=== PATIENT | female | born 1940 | race Caucasian/White ===

== ENCOUNTER 2018-01-06 12:49 | Emergency (ER) | payer MEDICARE, BC ==
[~2018-01-06] VITALS: Ht 552.4 cm; Wt 62.0 kg
[2018-01-06 13:10] VITALS: BP 126/64
[2018-01-06 13:34] LABS: BASOPHILS % (AUTO) 0.5 % (0-1); EOSINOPHILS % (AUTO) 0.2 % (0-6); HEMATOCRIT 38.8 % (35.0-45.0); HEMOGLOBIN 13.2 g/dl (12.0-16.0); LYMPHOCYTES # (AUTO) 2.4 X10'3 (1.1-4.8); LYMPHOCYTES % (AUTO) 23.6 % (21-51); MEAN CORPUSCULAR HEMOGLOBIN 29.8 PG (27.0-31.0); MEAN CORPUSCULAR HGB CONC 34.1 % (33.0-36.5); MEAN CORPUSCULAR VOLUME 87.5 FL (78-98); MEAN PLATELET VOLUME 7.5 FL (7.4-10.4); MONOCYTES # (AUTO) 0.8 X10'3 (0-0.9); MONOCYTES % (AUTO) 8.4 % (2-12); NEUTROPHILS # (AUTO) 6.8 X10'3 (1.8-7.7); NEUTROPHILS % (AUTO) 67.3 % (42-75); PLATELET COUNT 222 X10'3 (140-440); RED BLOOD COUNT 4.43 X10'6 (4.20-5.60); RED CELL DISTRIBUTION WIDTH 14.1 % (11.5-14.5)
[2018-01-06 13:48] LABS: INR 0.9 INR; PARTIAL THROMBOPLASTIN TIME 25 SECONDS (22-32); PROTHROMBIN TIME 9.4 SECONDS (9.0-12.0)
[2018-01-06 14:02] LABS: ALANINE AMINOTRANSFERASE 15 U/L (12-78); ALBUMIN/GLOBULIN RATIO 1.2 (1.1-1.5); ALKALINE PHOSPHATASE 57 IU/L (46-116); ANION GAP 7 (8-16); ASPARTATE AMINO TRANSFERASE 13 U/L (10-37); BILIRUBIN,TOTAL 0.4 MG/DL (0.1-1.0); BLOOD UREA NITROGEN 14 MG/DL (7-18); BUN/CREATININE RATIO 20.6 (6.6-38.0); CALCIUM 9.5 MG/DL (8.5-10.1); CHLORIDE 92 MMOL/L (99-107); CREATININE 0.68 MG/DL (0.40-0.90); GLUCOSE 115 MG/DL (70-104); POTASSIUM 4.2 MMOL/L (3.5-5.1); SODIUM 126 MMOL/L (135-145); TOTAL CARBON DIOXIDE 27.4 MMOL/L (24-32); TOTAL PROTEIN 7.3 G/DL (6.4-8.2); eGFR 84 ML/MIN
== END 2018-01-06 16:13 | disposition home or self-care (01) ==
LOC: ER 12:50
DX: E87.1 Hypo-osmolality and hyponatremia (principal); R07.89 Other chest pain; R06.02 Shortness of breath; Z98.61 Coronary angioplasty status; Z88.0 Allergy status to penicillin; Z88.2 Allergy status to sulfonamides; Z88.8 Allergy status to other drugs, medicaments and biological substances
CPT/HCPCS: 36415; 71045; 80053; 84484; 85025; 85610; 85730; 93005; 99285

== ENCOUNTER 2018-06-05 11:43 | Day surgery (SDC) | payer MEDICARE, BC ==
[~2018-06-05] VITALS: Ht 157.5 cm; Wt 61.4 kg
[2018-06-05 11:55] VITALS: BP 155/72
[2018-06-05] MEDS ORDERED: fentaNYL/PF 50MCG/1 ML 2ML syringe ONE (11:59)
[2018-06-05] MEDS ORDERED: MIDAZolam 5mg/5ml vial ONE (12:00)
[2018-06-05] MEDS ORDERED: LIDOcaine Viscous 15ml cup ONE (12:00)
[2018-06-05] MEDS ORDERED: CLOP75TA15 PO (12:04)
[2018-06-05] MEDS ORDERED: ASPI-611 PO (12:05)
[2018-06-05] MEDS ORDERED: LISI10TA4 PO (12:05)
[2018-06-05] MEDS ORDERED: [UNRECOGNIZED DRUG - OTHER] (12:06)
[2018-06-05] MEDS ORDERED: ROSU5TAB PO (12:07)
[2018-06-05] MEDS ORDERED: CANA100T PO (12:07)
[2018-06-05] MEDS ORDERED: VITA100D6 PO (12:08)
[2018-06-05] MEDS ORDERED: COLLOIDAL SILVER (12:08)
[2018-06-05] MEDS ORDERED: [UNRECOGNIZED DRUG - CODE] (12:09)
[2018-06-05 14:32] VITALS: BP 112/65
[2018-06-05 14:42] VITALS: BP 119/55
[2018-06-05 14:52] VITALS: BP 119/56
[2018-06-05 15:02] VITALS: BP 115/60
== END 2018-06-05 15:32 | disposition home or self-care (01) ==
LOC: GI LAB 11:43
PROVIDERS: ATTEND Internal Medicine Gastroenterology
DX: K63.5 Polyp of colon (principal); K29.50 Unspecified chronic gastritis without bleeding; K29.80 Duodenitis without bleeding; F17.210 Nicotine dependence, cigarettes, uncomplicated; M19.90 Unspecified osteoarthritis, unspecified site; M06.9 Rheumatoid arthritis, unspecified; M48.02 Spinal stenosis, cervical region; M48.061 Spinal stenosis, lumbar region without neurogenic claudication; G89.29 Other chronic pain; Z79.82 Long term (current) use of aspirin; Z88.0 Allergy status to penicillin; Z88.2 Allergy status to sulfonamides; Z88.3 Allergy status to other anti-infective agents; Z88.4 Allergy status to anesthetic agent; Z95.828 Presence of other vascular implants and grafts; Z87.2 Personal history of diseases of the skin and subcutaneous tissue; Z98.51 Tubal ligation status; Z79.899 Other long term (current) drug therapy; Z98.890 Other specified postprocedural states
CPT/HCPCS: 43239; 45385; 82948; 99153; G0500; J2250; J3010; J7030; 99152; A4620

== ENCOUNTER 2018-06-18 18:21 | Emergency (ER) | payer MEDICARE, BC ==
[~2018-06-18] VITALS: Ht 157.5 cm; Wt 60.0 kg
[~2018-06-18 18:21] MED LIST: ASPI-611 PO; CANA100T PO; CLOP75TA15 PO; COLLOIDAL SILVER; LISI10TA4 PO; ROSU5TAB PO; VITA100D6 PO; [UNRECOGNIZED DRUG - CODE]; [UNRECOGNIZED DRUG - OTHER]
[2018-06-18 18:54] LABS: GLUCOSE, URINE >=1000 mg/dl (Neg); KETONES,URINE NEGATIVE (Neg); LEUKOCYTE ESTERASE ,URINE MODERATE (Neg); NITRITES, URINE POSITIVE (Neg); OCCULT BLOOD,URINE LARGE (Neg); PH,URINE 6.5 (4.8-8.0); PROTEIN,URINE 100 mg/dl (Neg); UROBILINOGEN,URINE 0.2 E.U/dL (0.2-1.0)
[2018-06-18 18:55] LABS: UA COLLECTION TYPE CLN CATCH MIDSTREAM
[2018-06-18 18:56] LABS: CLARITY,URINE CLOUDY (Clear); COLOR,URINE RED (Yellow)
[2018-06-18 19:01] LABS: BACTERIA,URINE 2+ /HPF (Neg); MUCUS STRANDS NONE SEEN /LPF (Neg); RBC,URINE TNTC /HPF (0-2); SQUAMOUS EPITHELIAL CELL,UR FEW /LPF (FEW); WBC CLUMPS,URINE FEW /HPF (NEGATIVE)
[2018-06-18] MEDS ORDERED: CIPR-230 PO (19:34)
[2018-06-18 19:52] VITALS: BP 154/73
== END 2018-06-18 19:57 | disposition home or self-care (01) ==
LOC: ER 18:23
DX: N39.0 Urinary tract infection, site not specified (principal); E11.9 Type 2 diabetes mellitus without complications; Z95.5 Presence of coronary angioplasty implant and graft; Z88.0 Allergy status to penicillin; Z88.2 Allergy status to sulfonamides; Z79.82 Long term (current) use of aspirin; Z79.899 Other long term (current) drug therapy
CPT/HCPCS: 81001; 87077; 87088; 87186; 99283

== ENCOUNTER 2018-10-20 13:13 | Emergency (ER) | payer MEDICARE, BC ==
[~2018-10-20] VITALS: Ht 157.5 cm; Wt 62.1 kg
[2018-10-20] MEDS ORDERED: aspirin 81mg tab.chew PO ONE (14:35)
[2018-10-20 14:54] LABS: BASOPHILS # (AUTO) 0.1 X10'3 (0-0.2); BASOPHILS % (AUTO) 1.3 % (0-1); EOSINOPHILS % (AUTO) 0.3 % (0-6); HEMATOCRIT 38.9 % (35.0-45.0); HEMOGLOBIN 13.1 g/dl (12.0-16.0); LYMPHOCYTES # (AUTO) 1.7 X10'3 (1.1-4.8); MEAN CORPUSCULAR HEMOGLOBIN 29.3 PG (27.0-31.0); MEAN CORPUSCULAR HGB CONC 33.6 g/dL (33.0-36.5); MEAN CORPUSCULAR VOLUME 87.4 FL (78-98); MONOCYTES # (AUTO) 0.9 X10'3 (0-0.9); MONOCYTES % (AUTO) 8.8 % (2-12); NEUTROPHILS # (AUTO) 7.2 X10'3 (1.8-7.7); NEUTROPHILS % (AUTO) 72.6 % (42-75); PLATELET COUNT 227 X10'3 (140-440); RED BLOOD COUNT 4.45 X10'6 (4.20-5.60); RED CELL DISTRIBUTION WIDTH 14.2 % (11.5-14.5); WHITE BLOOD COUNT 9.9 X10'3 (4.5-11.0)
[2018-10-20 15:05] LABS: ALANINE AMINOTRANSFERASE 14 U/L (12-78); ALBUMIN 3.6 G/DL (3.4-5.0); ALBUMIN/GLOBULIN RATIO 0.9 (1.1-1.5); ALKALINE PHOSPHATASE 58 IU/L (46-116); ANION GAP 7 (8-16); ASPARTATE AMINO TRANSFERASE 14 U/L (10-37); BILIRUBIN,TOTAL 0.4 MG/DL (0.1-1.0); BLOOD UREA NITROGEN 17 MG/DL (7-18); CALCIUM 10.1 MG/DL (8.5-10.1); CHLORIDE 100 MMOL/L (99-107); CREATININE 0.68 MG/DL (0.40-0.90); GLUCOSE 95 MG/DL (70-104); POTASSIUM 3.9 MMOL/L (3.5-5.1); SODIUM 133 MMOL/L (135-145); TOTAL CARBON DIOXIDE 25.9 MMOL/L (24-32); TOTAL PROTEIN 7.7 G/DL (6.4-8.2); eGFR 83 ML/MIN
[2018-10-20 15:12] LABS: MAGNESIUM 2.3 MG/DL (1.5-2.4)
[2018-10-20 15:24] VITALS: BP 126/53
== END 2018-10-20 15:25 | disposition home or self-care (01) ==
LOC: ER 13:13
DX: R07.89 Other chest pain (principal); R42 Dizziness and giddiness; R11.2 Nausea with vomiting, unspecified; R50.9 Fever, unspecified; E11.9 Type 2 diabetes mellitus without complications; F17.200 Nicotine dependence, unspecified, uncomplicated; Z98.62 Peripheral vascular angioplasty status; Z88.0 Allergy status to penicillin; Z88.2 Allergy status to sulfonamides; Z88.8 Allergy status to other drugs, medicaments and biological substances; Z79.82 Long term (current) use of aspirin; Z79.899 Other long term (current) drug therapy
CPT/HCPCS: 36415; 71045; 80053; 83735; 83880; 84484; 85025; 93005; 99284

== ENCOUNTER 2019-10-22 01:23 | Emergency (ER) | payer MEDICARE, BC ==
[~2019-10-22] VITALS: Ht 157.5 cm; Wt 60.0 kg
--- NOTE | 2019-10-22 02:28 | NUR ---
reports she seeks dr. samayoa for cardology and was taking plavix, but no longer, now only takes baby asprin every other day. 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
--- NOTE | 2019-10-22 03:17 | NUR ---
Note whitney in EDM - 10/22/[address] HERNDON UPDATED THAT PT WITH A LOT OF PAIN TO LOWER ABDOMEN. HE WILL SEE HER SHORTLY. STATES SHE HAS A VERY BAD UTI
--- NOTE | 2019-10-22 03:18 | NUR ---
PT AWAITING ER . DR. HERNDON UPDATED OF PTS SYMPTOMS.
[2019-10-22 03:19] VITALS: BP 129/58
[2019-10-22] MEDS ORDERED: HYDROcodone/acetaminophen 5mg/325mg tablet PO ONE (04:20)
== END 2019-10-22 04:31 | disposition home or self-care (01) ==
LOC: ER 01:23
DX: G56.02 Carpal tunnel syndrome, left upper limb (principal); E11.9 Type 2 diabetes mellitus without complications; F17.200 Nicotine dependence, unspecified, uncomplicated; Z95.5 Presence of coronary angioplasty implant and graft; Z88.0 Allergy status to penicillin; Z88.2 Allergy status to sulfonamides; Z79.82 Long term (current) use of aspirin; Z79.899 Other long term (current) drug therapy
CPT/HCPCS: 29125; 82948; 93005; 99283

== ENCOUNTER 2020-01-15 07:10 | Emergency (ER) | payer MEDICARE, BC ==
[~2020-01-15] VITALS: Ht 162.6 cm; Wt 61.4 kg
[2020-01-15] MEDS ORDERED: meclizine 12.5mg tablet PO ONE (07:35)
[2020-01-15] MEDS ORDERED: ondansetron/PF 4mg/2ml inj IV ONE ×2 (07:35→09:00)
[2020-01-15 07:53] LABS: BASOPHILS # (AUTO) 0.1 X10'3 (0-0.2); BASOPHILS % (AUTO) 0.8 % (0-1); EOSINOPHILS # (AUTO) 0.1 X10'3 (0-0.9); HEMATOCRIT 39.6 % (35.0-45.0); HEMOGLOBIN 13.4 g/dl (12.0-16.0); LYMPHOCYTES % (AUTO) 22.5 % (21-51); MEAN CORPUSCULAR HEMOGLOBIN 30.4 PG (27.0-31.0); MEAN CORPUSCULAR HGB CONC 33.9 g/dL (33.0-36.5); MEAN CORPUSCULAR VOLUME 89.8 FL (78-98); MEAN PLATELET VOLUME 7.2 FL (7.4-10.4); MONOCYTES # (AUTO) 0.7 X10'3 (0-0.9); MONOCYTES % (AUTO) 8.3 % (2-12); NEUTROPHILS # (AUTO) 5.9 X10'3 (1.8-7.7); NEUTROPHILS % (AUTO) 67.4 % (42-75); PLATELET COUNT 227 X10'3 (140-440); RED BLOOD COUNT 4.41 X10'6 (4.20-5.60); WHITE BLOOD COUNT 8.8 X10'3 (4.5-11.0)
[2020-01-15 08:10] LABS: ALANINE AMINOTRANSFERASE 14 U/L (12-78); ALBUMIN 3.9 G/DL (3.4-5.0); ALBUMIN/GLOBULIN RATIO 1.2 (1.1-1.5); ALKALINE PHOSPHATASE 39 IU/L (46-116); ANION GAP 8 (8-16); ASPARTATE AMINO TRANSFERASE 17 U/L (10-37); BILIRUBIN,TOTAL 0.2 MG/DL (0.1-1.0); BLOOD UREA NITROGEN 19 MG/DL (7-18); BUN/CREATININE RATIO 24.1 (6.6-38.0); CHLORIDE 99 MMOL/L (99-107); CREATININE 0.79 MG/DL (0.40-0.90); GLUCOSE 158 MG/DL (70-104); POTASSIUM 4.4 MMOL/L (3.5-5.1); SODIUM 132 MMOL/L (135-145); TOTAL CARBON DIOXIDE 25.3 MMOL/L (24-32); TOTAL PROTEIN 7.1 G/DL (6.4-8.2); eGFR 70 ML/MIN
[2020-01-15] MEDS ORDERED: ONDA4TAB6 PO (08:48)
[2020-01-15] MEDS ORDERED: MECL-159 PO (08:48)
[2020-01-15 09:30] VITALS: BP 121/45
== END 2020-01-15 10:04 | disposition home or self-care (01) ==
LOC: ER 07:10
DX: R42 Dizziness and giddiness (principal); R11.0 Nausea; E11.9 Type 2 diabetes mellitus without complications; Z98.890 Other specified postprocedural states; Z88.0 Allergy status to penicillin; Z88.2 Allergy status to sulfonamides; Z88.8 Allergy status to other drugs, medicaments and biological substances; Z79.82 Long term (current) use of aspirin; Z79.899 Other long term (current) drug therapy
CPT/HCPCS: 36415; 80053; 82948; 85025; 93005; 96374; 96376; 99284; J2405; J8597; 84484

== ENCOUNTER 2020-05-06 17:09 | Emergency (ER) | payer MEDICARE, BC ==
[~2020-05-06] VITALS: Ht 157.5 cm; Wt 75.0 kg
[~2020-05-06 17:09] MED LIST changes: +MECL-159 PO; +ONDA4TAB6 PO
[2020-05-06 17:12] VITALS: BP 151/74
== END 2020-05-06 17:48 | disposition home or self-care (01) ==
LOC: ER 17:09
DX: R50.9 Fever, unspecified (principal); Z20.828 Contact with and (suspected) exposure to other viral communicable diseases; E11.9 Type 2 diabetes mellitus without complications; Z98.890 Other specified postprocedural states; Z88.0 Allergy status to penicillin; Z88.2 Allergy status to sulfonamides; Z88.8 Allergy status to other drugs, medicaments and biological substances; Z79.82 Long term (current) use of aspirin; Z79.899 Other long term (current) drug therapy
CPT/HCPCS: 36415; 99281

== ENCOUNTER 2024-01-09 09:17 | Emergency (ER) | payer MEDICARE, BC ==
[~2024-01-09] VITALS: Ht 157.5 cm; Wt 56.0 kg
[~2024-01-09 09:17] MED LIST changes: +LISI10TA27 PO; -LISI10TA4 PO; -MECL-159 PO; +MECL-302 PO
[2024-01-09 10:12] VITALS: BP 141/68; PULSE 72; RESP 16; TEMP 97.9; O2SAT 96
[2024-01-09 10:36] LABS: BASOPHILS % (AUTO) 0.7 % (0-1); EOSINOPHILS % (AUTO) 0.5 % (0-6); HEMATOCRIT 37.8 % (35.0-45.0); HEMOGLOBIN 12.6 g/dl (12.0-16.0); LYMPHOCYTES # (AUTO) 1.6 X10'3 (1.1-4.8); LYMPHOCYTES % (AUTO) 28.2 % (21-51); MEAN CORPUSCULAR HEMOGLOBIN 29.4 PG (27.0-31.0); MEAN CORPUSCULAR HGB CONC 33.2 g/dL (33.0-36.5); MEAN CORPUSCULAR VOLUME 88.6 FL (78-98); MEAN PLATELET VOLUME 8.3 FL (7.4-10.4); MONOCYTES # (AUTO) 0.5 X10'3 (0-0.9); MONOCYTES % (AUTO) 8.7 % (2-12); NEUTROPHILS # (AUTO) 3.6 X10'3 (1.8-7.7); NEUTROPHILS % (AUTO) 61.9 % (42-75); PLATELET COUNT 250 X10'3 (140-440); RED BLOOD COUNT 4.27 X10'6 (4.20-5.60); RED CELL DISTRIBUTION WIDTH 14.2 % (11.5-14.5); WHITE BLOOD COUNT 5.8 X10'3 (4.5-11.0)
[2024-01-09 10:39] LABS: ALANINE AMINOTRANSFERASE 24 U/L (12-78); ALBUMIN 4.2 G/DL (3.4-5.0); ALBUMIN/GLOBULIN RATIO 1.4 (1.1-1.5); ALKALINE PHOSPHATASE 40 IU/L (46-116); ANION GAP 9 (8-16); ASPARTATE AMINO TRANSFERASE 23 U/L (10-37); BILIRUBIN,TOTAL 0.4 MG/DL (0.1-1.0); BLOOD UREA NITROGEN 16 MG/DL (7-18); BUN/CREATININE RATIO 16.5 (10.0-20.0); CALCIUM 9.8 MG/DL (8.5-10.1); CHLORIDE 95 MMOL/L (99-107); CREATININE 0.97 MG/DL (0.40-0.90); GLUCOSE 103 MG/DL (70-104); LIPASE 77 U/L (16-77); POTASSIUM 4.5 MMOL/L (3.5-5.1); SODIUM 128 MMOL/L (135-145); TOTAL PROTEIN 7.3 G/DL (6.4-8.2); eCRCL 34 ML/MIN; eGFR 55 ML/MIN
[2024-01-09] MEDS: potassium Cl 20 mEq SR tablet PO STA (10:51)
[2024-01-09 10:54] LABS: BILIRUBIN,URINE NEGATIVE (Neg); CLARITY,URINE CLEAR (Clear); COLOR,URINE YELLOW (Yellow); GLUCOSE, URINE NEGATIVE (Neg); KETONES,URINE NEGATIVE (Neg); LEUKOCYTE ESTERASE ,URINE NEGATIVE (Neg); NITRITES, URINE NEGATIVE (Neg); OCCULT BLOOD,URINE NEGATIVE (Neg); PROTEIN,URINE NEGATIVE (Neg); UROBILINOGEN,URINE 0.2 E.U/dL (0.2-1.0)
[2024-01-09] MEDS: lactulose 20gm/30ml cup PO ONE (10:55)
[2024-01-09 10:57] LABS: UA COLLECTION TYPE NON-SPECIFIED
[2024-01-09] MEDS: haloperidol lactate 5mg/ml inj IM ONE (12:22)
[2024-01-09] MEDS: LORazepam 2 mg/ml vial IV ONE (12:22)
[2024-01-09] MEDS ORDERED: CELE-127 PO (12:30)
[2024-01-09] MEDS ORDERED: PLEC3TAB2 PO (12:30)
[2024-01-09] MEDS ORDERED: LISI20TA28 PO (12:30)
[2024-01-09] MEDS ORDERED: FAMO40TA7 PO (12:30)
[2024-01-09] MEDS ORDERED: METF-438 PO (12:30)
[2024-01-09] MEDS ORDERED: METO-395 PO (12:30)
[2024-01-09] MEDS ORDERED: ATOR20TA66 PO (12:30)
[2024-01-09] MEDS: magnesium hydroxide 30ml (MOM) UD suspension PO ONE (12:33)
[2024-01-09] MEDS: normal saline 1000ML IV soln IVB ONE (12:33)
== END 2024-01-09 19:53 | disposition home or self-care (01) ==
LOC: ER 09:18
DX: R11.10 Vomiting, unspecified (principal); R42 Dizziness and giddiness; R10.30 Lower abdominal pain, unspecified; K59.00 Constipation, unspecified; E11.9 Type 2 diabetes mellitus without complications; Z88.0 Allergy status to penicillin; Z88.2 Allergy status to sulfonamides; Z91.041 Radiographic dye allergy status
CPT/HCPCS: 36415; 74176; 80053; 81003; 83690; 85025; 99284; J7030